=== PATIENT | female | born 1995 | race Caucasian/White ===

== ENCOUNTER 2017-09-07 21:49 | Emergency (ER) | payer BC ==
[~2017-09-07] VITALS: Ht 167.6 cm; Wt 65.9 kg
[2017-09-07 21:50] VITALS: TEMP 98.9
[2017-09-07 23:46] LABS: COLLECTION METHOD CLEAN CATCH
[2017-09-07 23:54] LABS: AMORPHOUS CRYSTAL Present /uL; MUCOUS Present /lpf; PH 6 (5-8); URINE APPEARANCE Cloudy; URINE BACTERIA None Seen /hpf; URINE BILIRUBIN Negative (NEGATIVE); URINE BLOOD Negative (NEGATIVE); URINE COLOR Yellow; URINE GLUCOSE Negative (NEGATIVE); URINE KETONE Negative (NEGATIVE); URINE LEUKOCYTE ESTERASE Negative (NEGATIVE); URINE NITRATE Negative (NEGATIVE); URINE PROTEIN(semi-quant) Negative (NEGATIVE); URINE RBC 0-2 /hpf; URINE UROBILINOGEN Negative (NEGATIVE)
[2017-09-08 00:25] VITALS: BP 112/64; PULSE 78
== END 2017-09-08 00:31 | disposition home or self-care (01) ==
LOC: COL.ER 21:49
PROVIDERS: Nurse Practitioner
DX: S70.02XA Contusion of left hip, initial encounter (principal); V43.62XA Car passenger injured in collision with other type car in traffic accident, initial encounter